=== PATIENT | female | born 1985 | race Two or more races ===

== ENCOUNTER 2023-03-20 20:30 | Emergency (ER) | payer OTHER ==
[~2023-03-20] VITALS: Ht 162.6 cm; Wt 99.8 kg
[2023-03-20] MEDS ORDERED: CRESTOR20 MG PO (20:43)
[2023-03-20] MEDS ORDERED: AVAPRO150 MG PO (20:43)
[2023-03-20] MEDS ORDERED: TOPROL XL25 M1 PO (20:43)
== END 2023-03-20 22:52 | disposition home or self-care (01) ==
LOC: ER 20:30
DX: S80.02XA Contusion of left knee, initial encounter (principal); W19.XXXA Unspecified fall, initial encounter; Y93.89 Activity, other specified; Y92.89 Other specified places as the place of occurrence of the external cause; Y99.9 Unspecified external cause status; M25.562 Pain in left knee; M17.12 Unilateral primary osteoarthritis, left knee; Z88.0 Allergy status to penicillin